=== PATIENT | male | born 1980 | race Two or more races ===

== ENCOUNTER 2020-11-12 12:18 | Emergency (ER) | payer MEDICAID, OTHER ==
[~2020-11-12] VITALS: Ht 177.8 cm; Wt 133.8 kg
--- NOTE | 2020-11-12 12:28 | NUR ---
pt arrives to ER with complaint of lower back pain and testicular swelling and pain x few days. pt states being treated 11/07 and diagnosed with kidney stone. pt states pain started back today. pt denies dysuria or burning.
[2020-11-12] MEDS ORDERED: Ketorolac 30mg Inj IV ONE (12:45)
--- NOTE | 2020-11-12 12:49 | Emergency Room Report ---
History of Present Illness General Chief Complaint: Male Urogenital Problems Source: Patient Present Illness HPI Patient presents with several days of left flank and left testicular pain its been fairly significant. He was evaluated at [facility] of the CT scan. They told him that he had passed stone. He had received Dilaudid. Denies any fevers or chills. He is also nauseated and had some vomiting without any blood. He denies any diarrhea. There is no hematuria. The pain is rated 10/10. It is difficult to ascertain whether this is in the testicle or in the flank as they both seem to be related. It is fairly constant at this time. There is no change in bowel habits. The patient had to leave his work because of the pain. The patient has a history of kidney stones in the past. This feels like when he has had a kidney stone. The patient has a history of cirrhosis and therefore does not take Tylenol. Patient denies known exposures to Covid positive contacts. No sore throat, chest pain, palpitations, shortness of breath, joint pain, rashes, depression, anxiety, visual changes, headache. 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 Nursing Documentation: PMH: Agreed; PSxH: Agreed Nursing Documentation-PMH Hx Cardiac Problems: No Hx Hypertension: Yes Hx Pacemaker: No Hx Asthma: No Hx COPD: No Hx Diabetes: No Hx Cancer: No Hx Gastrointestinal Problems: Yes Hx Dialysis: Yes History Of Psychiatric Problem: No Hx Neurological Problems: No Hx Cerebrovascular Accident: No Hx Seizures: No Review of Systems All Other Systems: negative except mentioned in HPI Physical Exam Vital Signs Date Time Temp Pulse Resp B/P (MAP) Pulse Ox O2 Delivery O2 Flow Rate FiO2 11/12/20 12:23 98.1 87 18 130/80 (97) 95 Room Air Sp02 EP Interpretation: reviewed, normal General Appearance: well appearing, no apparent distress, GCS 15 Head: normocephalic Eyes: bilateral eye normal inspection, bilateral eye PERRL, bilateral eye EOMI ENT: other - Wearing a mask Neck: supple Respiratory: lungs clear, normal breath sounds Cardiovascular #1: regular rate, rhythm Cardiovascular #2: 2+ radial (R) Gastrointestinal: normal inspection, normal bowel sounds, no mass, non- distended, no guarding, no hernia, no rebound, tenderness - Reported left flank Genitourinary: no CVA tenderness, penis normal - Uncircumcised, other - Tender left testicle without swelling. Testicle is not high riding. Musculoskeletal: back normal, normal range of motion, gait/station normal Neurologic: alert, oriented x3, grossly normal Psychiatric: mood/affect normal Skin: no rash, warm/dry Medical Decision Making Diagnostic Impression: Primary Impression: Flank pain Additional Impression: Testicular pain, left ER Course Patient with a history of renal stones presents with left flank and left testicular pain. Differential includes torsion, epididymitis, ureterolithiasis, urinary tract infection amongst others. Patient evaluated with labs and renal and scrotal ultrasound. Patient treated with IV hydration, Zofran, Toradol. Contact [facility] for CT scan results. White count normal. Urinalysis with 0-2 red cells and 0-2 white cells. Patient required morphine for completion of ultrasound of testicle. Renal ultrasound without stones or hydronephrosis. Left renal cyst. Testicular ultrasound with hydroceles, no torsion, normal epididymi. Vascular structure next to left testicle/hydrocele. Patient improved but complaining about some pain. Percocet given orally. Discussed findings with patient. CT results not provided by [facility]. Based on current data no medical emergency present. Patient improved. Advised patient the need for follow-up with a urologist. Patient stable for outpatient observation and treatment. Laboratory Tests Test 11/12/20 12:56 White Blood Count 5.4 K/UL (4.8-10.8) Red Blood Count 4.84 M/UL (4.70-6.10) Hemoglobin 15.5 G/DL (14.2-18.0) Hematocrit 45.7 % (42.0-52.0) Mean Corpuscular Volume 94 FL (80-99) Mean Corpuscular Hemoglobin 32.0 PG (27.0-31.0) H Mean Corpuscular Hemoglobin Concent 33.8 G/DL (32.0-36.0) Red Cell Distribution Width 12.1 % (11.6-14.8) Platelet Count 224 K/UL (150-450) Mean Platelet Volume 6.0 FL (6.5-10.1) L Neutrophils (%) (Auto) 63.4 % (45.0-75.0) Lymphocytes (%) (Auto) 22.9 % (20.0-45.0) Monocytes (%) (Auto) 9.7 % (1.0-10.0) Eosinophils (%) (Auto) 3.0 % (0.0-3.0) Basophils (%) (Auto) 1.1 % (0.0-2.0) Prothrombin Time 11.4 SEC (9.30-11.50) Prothrombin Time INR 1.0 (0.9-1.1) Activated Partial Thromboplast Time 28 SEC (23-33) Urine Color Pale yellow Urine Appearance Clear Urine pH 6.5 (4.5-8.0) Urine Specific Marilla 1.010 (1.005-1.035) Urine Protein Negative (NEGATIVE) Urine Glucose (UA) 2+ (NEGATIVE) H Urine Ketones Negative (NEGATIVE) Urine Blood 1+ (NEGATIVE) H Urine Nitrite Negative (NEGATIVE) Urine Bilirubin Negative (NEGATIVE) Urine Urobilinogen Normal MG/DL (0.0-1.0) Urine Leukocyte Esterase Negative (NEGATIVE) Urine RBC 0-2 /HPF (0 - 0) H Urine WBC 0-2 /HPF (0 - 0) Urine Squamous Epithelial Cells Occasional /LPF Urine Bacteria Occasional /HPF (NONE) Sodium Level 139 MMOL/L (136-145) Potassium Level 4.0 MMOL/L (3.5-5.1) Chloride Level 104 MMOL/L (98-107) Carbon Dioxide Level 27 MMOL/L (21-32) Anion Gap 9 mmol/L (5-15) Blood Urea Nitrogen 17 mg/dL (7-18) Creatinine 1.1 MG/DL (0.55-1.30) Estimated Glomerular Filtration Rate > 60 mL/min (>60) Glucose Level 102 MG/DL (74-106) Calcium Level 9.2 MG/DL (8.5-10.1) Total Bilirubin 0.4 MG/DL (0.2-1.0) Aspartate Amino Transferase (AST) 26 U/L (15-37) Alanine Aminotransferase (ALT) 45 U/L (12-78) Alkaline Phosphatase 140 U/L (46-116) H Total Protein 8.4 G/DL (6.4-8.2) H Albumin 3.7 G/DL (3.4-5.0) Globulin 4.7 g/dL Albumin/Globulin Ratio 0.8 (1.0-2.7) L Lipase 78 U/L (73-393) CT/MRI/US Diagnostic Results CT/MRI/US Diagnostic Results #1: Imaging Test Ordered: Renal ultrasound Impression IMPRESSION: No hydronephrosis or nephrolithiasis. Simple cyst in the left kidney measuring 1.[address]/MRI/US Diagnostic Results #2: Imaging Test Ordered: Testicular/scrotal ultrasound Impression FINDINGS: The testes are symmetrical in size, homogenous in echotexture and demonstrate no focal abnormalities. The right testis measures 4.0 x 3.0 x 1.92 cm. The left testis measures 4.11 x 2.46 x 1.86 cm. The epididymal heads are normal in size. Mild hydroceles demonstrated. Prominent vein seen anterior and posterior to the left testicle with no difference on Valsalva. Hypoechoic mildly complex cyst in the left epididymis measuring 1.06 x 0.77 cm. IMPRESSION: No testicular mass or torsion. Left epididymal mildly complex cyst measuring 1.06 cm. Prominent vein adjacent to the left testicle. Last Vital Signs Date Time Temp Pulse Resp B/P (MAP) Pulse Ox O2 Delivery O2 Flow Rate FiO2 11/12/20 15:43 78 15 124/81 100 Room Air 11/12/20 12:23 98.1 Status: improved Disposition: HOME, SELF-CARE Condition: Improved Scripts Ibuprofen* (MOTRIN*) 600 Mg Tablet 600 MG ORAL Q8H PRN for FOR PAIN, #16 TAB 0 Refills Prov: Aly Courtney MD 11/12/20 Tramadol Hcl* (ULTRAM*) 50 Mg Tablet 50 MG ORAL Q6H PRN for For Pain, #8 TAB 0 Refills Prov: Aly Courtney MD 11/12/20 Aly Courtney MD Nov 12, 2020 12:49
[2020-11-12 13:05] VITALS: BP 124/81
--- NOTE | 2020-11-12 13:07 | NUR ---
iv placed, blood drawn and sent to lab, urine sent to lab. pt placed on monitor. pt medicated per eMAR.
[2020-11-12 13:18] LABS: APPEARANCE,URINE CLEAR; BASOPHILS % (AUTO) 1.1 % (0.0-2.0); BILIRUBIN, URINE NEGATIVE (NEGATIVE); COLOR,URINE PALE YELLOW; GLUCOSE, URINE (UA) 2+ (NEGATIVE); HEMATOCRIT 45.7 % (42.0-52.0); HEMOGLOBIN 15.5 G/DL (14.2-18.0); KETONES,URINE NEGATIVE (NEGATIVE); LEUKOCYTE ESTERASE ,URINE NEGATIVE (NEGATIVE); LYMPHOCYTES % (AUTO) 22.9 % (20.0-45.0); MEAN CORPUSCULAR VOLUME 94 FL (80-99); MONOCYTES % (AUTO) 9.7 % (1.0-10.0); NEUTROPHILS % (AUTO) 63.4 % (45.0-75.0); NITRITE,URINE NEGATIVE (NEGATIVE); PH,URINE 6.5 (4.5-8.0); PLATELET COUNT 224 K/UL (150-450); PROTEIN,URINE NEGATIVE (NEGATIVE); RED BLOOD COUNT 4.84 M/UL (4.70-6.10); RED CELL DISTRIBUTION WIDTH 12.1 % (11.6-14.8); UROBILINOGEN,URINE NORMAL MG/DL (0.0-1.0); WHITE BLOOD COUNT 5.4 K/UL (4.8-10.8)
[2020-11-12 13:25] LABS: ANION GAP 9 mmol/L (5-15); BLOOD UREA NITROGEN 17 mg/dL (7-18); CALCIUM 9.2 MG/DL (8.5-10.1); CARBON DIOXIDE 27 MMOL/L (21-32); CHLORIDE 104 MMOL/L (98-107); CREATININE 1.1 MG/DL (0.55-1.30); SODIUM 139 MMOL/L (136-145)
[2020-11-12 13:29] LABS: ALANINE AMINOTRANSFERASE 45 U/L (12-78); ALBUMIN 3.7 G/DL (3.4-5.0); ALBUMIN/GLOBULIN RATIO 0.8 (1.0-2.7); ALKALINE PHOSPHATASE 140 U/L (46-116); ASPARTATE AMINO TRANSFERASE 26 U/L (15-37); BILIRUBIN,TOTAL 0.4 MG/DL (0.2-1.0)
[2020-11-12] MEDS ORDERED: Morphine Sulfate 4mg/ml Inj IVP ONE (14:00)
--- NOTE | 2020-11-12 14:17 | Diagnostic Imaging Report ---
US RENAL INDICATION: Pain TECHNIQUE: Real time imaging of the kidneys is performed in sagittal and transverse projections. COMPARISON: None FINDINGS: The kidneys are normal in size, with the left kidney measuring 11.26 cm and the right measuring 10.23 cm. There is no evidence of hydronephrosis or solid mass lesions. No sonographic evidence of renal calculi. Simple cyst in the left kidney measuring 1.6 x 1.9 cm. Urinary bladder is unremarkable measuring 6 x 4.2 x 3.6 cm with a volume of 48.05 cc. IMPRESSION: No hydronephrosis or nephrolithiasis. Simple cyst in the left kidney measuring 1.9 cm..
[2020-11-12] MEDS ORDERED: TRAMADOL HCL50 MG ORAL (14:52)
[2020-11-12] MEDS ORDERED: IBUPROFEN600 M1 ORAL (14:52)
--- NOTE | 2020-11-12 15:11 | Diagnostic Imaging Report ---
US SCROTAL INDICATION: pain TECHNIQUE: Real-time sonographic imaging of the scrotum is performed in transverse and longitudinal projections. COMPARISON: None FINDINGS: The testes are symmetrical in size, homogenous in echotexture and demonstrate no focal abnormalities. The right testis measures 4.0 x 3.0 x 1.92 cm. The left testis measures 4.11 x 2.46 x 1.86 cm. The epididymal heads are normal in size. Mild hydroceles demonstrated. Prominent vein seen anterior and posterior to the left testicle with no difference on Valsalva. Hypoechoic mildly complex cyst in the left epididymis measuring 1.06 x 0.77 cm. IMPRESSION: No testicular mass or torsion. Left epididymal mildly complex cyst measuring 1.06 cm. Prominent vein adjacent to the left testicle.
[2020-11-12] MEDS ORDERED: oxyCODONE HCL/Acetaminophen 5/325mg ORAL ONE (15:15)
--- NOTE | 2020-11-12 15:42 | NUR ---
ED Nurse Note: Pt cleared by health care Provider for discharge. DC instructions/prescription was given and explained to pt and verbalized understanding of teachings. All medical devices such as ID band removed. Pt is AAO x4, ambulatory and left with all personal belongings.
[2020-11-12 15:43] VITALS: BP 124/81
== END 2020-11-12 15:46 | disposition home or self-care (01) ==
LOC: EMR 13:00
DX: N50.812 Left testicular pain (principal); R10.9 Unspecified abdominal pain; Z87.442 Personal history of urinary calculi; Z88.8 Allergy status to other drugs, medicaments and biological substances; I10 Essential (primary) hypertension; F17.200 Nicotine dependence, unspecified, uncomplicated; N28.1 Cyst of kidney, acquired
CPT/HCPCS: 36415; 76770; 76870; 80053; 81003; 83690; 85025; 85610; 85730; 96361; 96374; 96375; J1885; J2270; J2405; J7030; Z7502; 99284

== ENCOUNTER 2020-11-14 19:21 | Emergency (ER) | payer MEDICAID ==
[~2020-11-14] VITALS: Ht 167.6 cm; Wt 133.8 kg
[~2020-11-14 19:21] MED LIST: IBUPROFEN600 M1 ORAL; TRAMADOL HCL50 MG ORAL
[2020-11-14 19:42] VITALS: BP 120/70
[2020-11-14] MEDS ORDERED: Tylenol #3 tab (300mg/30mg) ORAL ONE (19:45)
[2020-11-14] MEDS ORDERED: Ketorolac 30mg Inj IV ONE (19:45)
--- NOTE | 2020-11-14 19:45 | NUR ---
Pte came to ER ambulatory c/o abdominal pain since today associated with nausea. Will continue to monitor.
--- NOTE | 2020-11-14 20:04 | NUR ---
Patient in bed in comfortable position and stable condition. All vitals signs were taken within normal range. Urine and blood were collected and sent them to the lab. All medications were administered without adverse reaction. Patient continuous attached to the monitor.
--- NOTE | 2020-11-14 20:22 | Emergency Room Report ---
History of Present Illness General Chief Complaint: Abdominal Pain Source: Patient Present Illness HPI 40-year-old male morbidly obese, here complaining of epigastric pain radiating to lower back. Patient reports that he has history of pancreatitis. Patient was seen in [facility] 2 days ago, lipase within normal limits. Patient had multiple CT scans ultrasounds. Prior to his visit [place] [facility] 2 days ago patient went to [facility] and full work-up and CT scan done. Patient also has some scrotal pain few days ago at [place] which had ultrasound with negative impression. Patient received multiple doses of morphine 2 days ago at [place] [facility] was sent home with tramadol and ibuprofen. Patient immediately says that tramadol does not work for him usually [employer] works morning. Patient also said that since his pain is not managed he will continue to come to the emergency room for pain management. Reports that due to insurance change she does not have a primary care provider and cannot follow-up with primary care provider. Has not been seen with pain management. Extensive cures history appears to be present for patient. Patient also complains of few bouts of nonbloody emesis. Denies diarrhea constipation. He also mentions that he received Pfizer vaccine earlier this morning. Reports that epigastric pain started few hours ago. Denies body aches, cough or congestion, fever or chills. Appears to be stable with stable v ital signs. Patient also reported that Toradol does not work for him. 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 Patient History Past Medical History: see triage record Past Surgical History: none Pertinent Family History: none Reviewed Nursing Documentation: PMH: Agreed; PSxH: Agreed Nursing Documentation-PMH Past Medical History: No History, Except For Hx Cardiac Problems: No Hx Hypertension: Yes Hx Pacemaker: No Hx Asthma: No Hx COPD: No Hx Diabetes: No Hx Cancer: No Hx Gastrointestinal Problems: Yes Hx Dialysis: Yes Hx Neurological Problems: No Hx Cerebrovascular Accident: No Hx Seizures: No Review of Systems All Other Systems: negative except mentioned in HPI Physical Exam Vital Signs Date Time Temp Pulse Resp B/P (MAP) Pulse Ox O2 Delivery O2 Flow Rate FiO2 11/14/20 19:29 98.6 100 18 127/81 (96) 100 Room Air Sp02 EP Interpretation: reviewed, normal General Appearance: mild distress Head: normocephalic, atraumatic Eyes: bilateral eye normal inspection, bilateral eye PERRL ENT: no angioedema Neck: supple, no meningismus, no bony tend Respiratory: no rhonchi, no respiratory distress, no retraction, no accessory muscle use, no wheezing Cardiovascular #1: no murmur Cardiovascular #2: 2+ dorsalis pedis (R), 2+ dorsalis pedis (L) Gastrointestinal: soft, no mass, no organomegaly, no peritonitis, no bruit, non-distended, no guarding, no hernia, no pulsatile mass, no rebound Rectal: deferred Genitourinary: no CVA tenderness Musculoskeletal: back normal, no calf tenderness, non-tender Neurologic: alert, motor strength/tone normal, oriented x3, sensory intact, responsive, speech normal Psychiatric: judgement/insight normal, memory normal, mood/affect normal, no suicidal/homicidal ideation Skin: no rash Lymphatic: no adenopathy Medical Decision Making PA Attestation ALL Diagnosis and treatment plan reviewed and discussed with my supervising physician Dr. Velasquez Diagnostic Impression: Primary Impression: Chronic abdominal pain ER Course 40-year-old male morbidly obese, here complaining of epigastric pain radiating to lower back. Patient reports that he has history of pancreatitis. Patient was seen in [place] [facility] 2 days ago, lipase within normal limits. Patient had multiple CT scans ultrasounds. Prior to his visit [facility] 2 days ago patient went to [facility] and full work-up and CT scan done. Patient also has some scrotal pain few days ago at [place] which had ultrasound with negative impression. Patient received multiple doses of morphine 2 days ago at [place] [facility] was sent home with tramadol and ibuprofen. Patient immediately says that tramadol does not work for him usually [employer] works morning. Patient also said that since his pain is not managed he will continue to come to the emergency room for pain management. Reports that due to insurance change she does not have a primary care provider and cannot follow-up with primary care provider. Has not been seen with pain management. Extensive cures history appears to be present for patient. Patient also complains of few bouts of nonbloody emesis. Denies diarrhea constipation. He also mentions that he received Pfizer vaccine earlier this morning. Reports that epigastric pain started few hours ago. Denies body aches, cough or congestion, fever or chills. Appears to be stable with stable vital signs. Patient also reported that Toradol does not work for him. Ddx considered but are not limited to: appendicitis, cholecystis, gastritis, gastroenteritis, UTI, pyelonephritis, SBO, diverticulitis, pancreatitis Vital signs: are WNL, pt. is afebrile H&PE are most consistent with: chronic abdominal pain ORDERS: lipase, zofran, ED INTERVENTIONS: Toradol IV, Tylenol 3, Zofran IV No imaging or further blood work needed patient recent imaging done 2 days ago all within normal limits Patient was advised to follow-up with pain management, at this time morphine and Tylenol recommended patient continuously in the past few weeks. Patient to follow-up with primary doctor for referral to pain management I gave him a list of free clinics that will accept his medical and will be able to establish with a primary doctor to be followed by pain management [facility]. With patient to avoid eating spicy greasy food. Patient lipase level is even lower than 2 days ago when he was here. Abdomen is nonrigid. Advised patient to take omeprazole as he reports he has it at home. If worsening symptoms return to the emergency room DISCHARGE: At this time pt. is stable for d/c to home. Will provide printed patient care instructions, and any necessary prescriptions. Care plan and follow up instructions have been discussed with the patient prior to discharge. Last Vital Signs Date Time Temp Pulse Resp B/P (MAP) Pulse Ox O2 Delivery O2 Flow Rate FiO2 11/14/20 19:42 95 17 Room Air 11/14/20 19:42 97.4 120/70 100 Disposition: HOME, SELF-CARE Condition: Stable Scripts Ondansetron (Zofran) 4 Mg Tablet 4 MG ORAL Q6H PRN for Nausea & Vomiting, #20 TAB Prov: Mary Smiley 11/14/20 Referrals: NOT CHOSEN IPA/,REFERRING (PCP) Patient Instructions: Abdominal Pain, Adult Additional Instructions: Follow-up with primary care provider for further evaluation, to be sent to [facility], as well as pain management with your chronic pain. He was prescribed tramadol and ibuprofen 2 days ago at [facility], he can continue taking notes. I will write nausea medication. Avoid eating greasy food. At this time dispense of narcotics are not recommended due to the chronicity of the pain and pain needing to be managed by specialist. Mary Smiley Nov 14, 2020 20:22
[2020-11-14] MEDS ORDERED: ZOFRAN4 M1 ORAL (20:23)
--- NOTE | 2020-11-14 20:30 | NUR ---
Pt awake and alert, pt reports continued but decreased RLQ abd pain, respirations even and unlabored, skin signs normal, no SS of respiratory distress, neuro intact, OK to discharge per ED Mary TOMLINSON.
== END 2020-11-14 20:31 | disposition home or self-care (01) ==
LOC: EMR 19:38
DX: R10.13 Epigastric pain (principal); G89.29 Other chronic pain; M54.5 Low back pain; R11.10 Vomiting, unspecified; Z88.8 Allergy status to other drugs, medicaments and biological substances; I10 Essential (primary) hypertension
CPT/HCPCS: 36415; 83690; 96374; 96375; J1885; J2405; Z7502; 99284